=== PATIENT | female | born 1980 | race African-American/Black ===

== ENCOUNTER 2017-10-23 09:46 | Emergency (ER) | payer MEDICAID, OTHER ==
[~2017-10-23] VITALS: Ht 162.6 cm; Wt 79.0 kg
[2017-10-23 09:48] VITALS: BP 167/99; PULSE 70; RESP 16; TEMP 97.9; O2SAT 97
--- NOTE | 2017-10-23 10:33 | PD ---
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 This paresthesia or weakness of the extremity. She has full range of motion of the wrist and fingers. Pain is worse when the area is palpated and relieved with rest. Severity is mild. PFSH Past Medical History Medical History: Denies Significant Hx ?: Not LMP: 10/23/17 Social History Alcohol Use: No Tobacco Use: No Substance Use: No Allergies-Medications (Allergen,Severity, Reaction): Coded Allergies: No Known Allergies (Unverified , 10/23/17) Reported Meds & Prescriptions Reported Meds & Active Scripts Active No Active Prescriptions or Reported Medications Review of Systems Except as stated in HPI: all other systems reviewed are Neg Physical Exam Narrative GENERAL: Alert female who is well-appearing. SKIN: Warm and dry. HEAD: Normocephalic. EYES: No injection or drainage. NECK: Supple, trachea midline. MUSCULOSKELETAL: No cyanosis, or edema. Attention to the right upper extremity : Mild swelling and tenderness of the soft tissue in the distal medial aspect of the forearm. Patient has full range of motion of the wrist and fingers. 2+ radial pulse. Normal sensation distal to the injury. Refill. No bony tenderness of the wrist, radial bone, ulnar bone. Data Data Last Documented VS Vital Signs Date Time Temp Pulse Resp B/P (MAP) Pulse Ox O2 Delivery O2 Flow Rate FiO2 10/23/17 09:48 97.9 70 16 167/99 (121) 97 Room Air MDM Medical Decision Making Medical Screen Exam Complete: Yes Emergency Medical Condition: Yes Differential Diagnosis Contusion, wrist sprain, unlikely forearm fracture Narrative Course 37-year-old female with a contusion to the right forearm. Patient has no bony tenderness. She has full range of motion and normal sensation of the wrist and fingers. The extremity is neurovascularly intact. I do not believe this requires an x-ray as I do not suspect a fracture. Treatment of the contusion was discussed with patient. Rest, ice, elevate. Diagnosis Primary Impression: Contusion of right forearm Qualified Codes: S50.11XA - Contusion of right forearm, initial encounter Referrals: [facility] Additional Instructions: Rest, ice, elevate the extremity. Take [id number] Motrin or Tylenol as needed for pain. Avoid heavy lifting or strenuous activity which involves the right upper arm. Scripts No Active Prescriptions or Reported Meds Disposition: 01 DISCHARGE HOME Condition: Stable Drea Hernandez Oct 23, 2017 10:33
== END 2017-10-23 10:47 | disposition home or self-care (01) ==
LOC: NEPK 09:46
DX: S50.11XA Contusion of right forearm, initial encounter (principal); W22.8XXA Striking against or struck by other objects, initial encounter; Y93.F9 Activity, other caregiving; Y99.0 Civilian activity done for income or pay
CPT/HCPCS: 99282

== ENCOUNTER 2018-03-26 17:11 | Emergency (ER) | payer OTHER, MEDICAID ==
[~2018-03-26] VITALS: Ht 165.1 cm; Wt 80.0 kg
[2018-03-26 17:37] VITALS: BP 161/101; PULSE 80; RESP 17; TEMP 97.3; O2SAT 100
--- NOTE | 2018-03-26 18:32 | RADRPT ---
EXAM DATE: 03/26/2018 6:28 PM EDT AGE/SEX: 38 years / Female INDICATIONS: W/C hit knee on floor while bracing for fall. CLINICAL DATA: This is the patient's initial encounter. Patient reports that signs and symptoms have been present for 1 day and indicates a pain score of 2/10. MEDICAL/SURGICAL HISTORY: None. None. COMPARISON: No prior [facility] exams available for comparison. FINDINGS: Bony structures are intact and in normal alignment. Joints are intact without dislocation or significant arthropathy. Minimal spurring is seen at the anterior superior aspect of the patella. Osseous density is normal. Soft tissues are unremarkable. No radiopaque foreign bodies seen. CONCLUSION: No acute abnormalities seen. There is minimal spurring at the anterior superior aspect of the patella . Electronically signed by: Higinio Kelly MD 03/26/2018 6:30 PM EDT
--- NOTE | 2018-03-26 18:34 | PD ---
HPI Chief Complaint: Musculoskeletal Complaint Time Seen by Provider: 17:51 Travel History International Travel<30 days: No Contact w/Intl Traveler<30days: No Traveled to known affect area: No History of Present Illness HPI 38-year-old female presents the ED for evaluation of 2/10 right knee pain. Pain is minimal, exacerbated by touch. 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 Patient is a nurse on the floor here. She denies hitting her head or loss of consciousness in the fall. She has been ambulatory since the accident. She denies previous injury to the area, clicking, popping, giving way, numbness, tingling, weakness, limitations range of motion of the extremity. She treated with ice pack before arrival. [facility] Social History Alcohol Use: No Tobacco Use: No Substance Use: No Allergies-Medications (Allergen,Severity, Reaction): Coded Allergies: No Known Allergies (Unverified , 03/26/18) Reported Meds & Prescriptions Reported Meds & Active Scripts Active No Active Prescriptions or Reported Medications Review of Systems Except as stated in HPI: all other systems reviewed are Neg Physical Exam Narrative GENERAL: Well-nourished, well-developed pleasant -[place] female no acute distress. SKIN: Focused skin assessment warm/dry. HEAD: Normocephalic. EYES: No scleral icterus. No injection or drainage. NECK: Supple, trachea midline. No JVD or lymphadenopathy. CARDIOVASCULAR: Regular rate and rhythm without murmurs, gallops, or rubs. RESPIRATORY: Breath sounds equal bilaterally. No accessory muscle use. GASTROINTESTINAL: Abdomen soft, non-tender, nondistended. MUSCULOSKELETAL: No cyanosis, or edema. FOCUSED RIGHT LOWER EXTREMITY EXAM: 2+ DP pulse. Tender to palpation of the patella. No tenderness to palpation of the joint lines. Patient is able to flex beyond 90 and extend beyond 0. Negative varus/valgus stress testing. Patient is able to ambulate with a normal gait. Neurovascularly intact distally. BACK: Nontender without obvious deformity. No CVA tenderness. Data Data Last Documented VS Vital Signs Date Time Temp Pulse Resp B/P (MAP) Pulse Ox O2 Delivery O2 Flow Rate FiO2 03/26/18 17:37 97.3 80 17 161/101 (121) 100 Orders Orders Knee, Complete (4vws) (03/26/18 17:50) Ice/Cold Pack (03/26/18 17:50) Ed Discharge Order (03/26/18 18:34) [facility] Medical Decision Making Medical Screen Exam Complete: Yes Emergency Medical Condition: Yes Differential Diagnosis Fall versus contusion versus patellar fracture versus other Narrative Course 38-year-old female presents the ED for evaluation of 2/10 right knee pain. 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 Patient is a nurse on the floor here. Vitals reviewed. Claudia exam reveals point tenderness of the patella but is otherwise very reassuring. X-rays reveal no acute bony injury, incidental finding of small bone spur of the patella. I offered the patient anti- inflammatory medications which she declines at this time. She does request a spare ice pack for treatment at home. Patient's instructed to use RICE therapy , return to normal, gentle activity as tolerated, follow with the orthopedist. She indicated understanding the instructions. She is stable and discharged home. Diagnosis Primary Impression: Fall from standing Qualified Codes: W19.XXXA - Unspecified fall, initial encounter Additional Impression: Contusion of right knee, initial encounter Referrals: Orthopedist Additional Instructions: Rest, ice, elevate the extremity. Apply ice no longer than 10-15 minutes per hour a few times a day. 600 00 mg ibuprofen up to 3 times a day as needed for pain. Return to normal, gentle activity as tolerated. No running, jumping activities for the next few weeks. Follow up with orthopedist or your primary care provider. Return to the ED for any urgent or emergent medical condition. Scripts No Active Prescriptions or Reported Meds Disposition: 01 DISCHARGE HOME Condition: Stable Heydi Perez March 26, 2018 18:34
== END 2018-03-26 18:51 | disposition home or self-care (01) ==
LOC: NEPK 17:11
DX: S80.01XA Contusion of right knee, initial encounter (principal); W19.XXXA Unspecified fall, initial encounter; Y93.F9 Activity, other caregiving; Y92.239 Unspecified place in hospital as the place of occurrence of the external cause; Y99.0 Civilian activity done for income or pay
CPT/HCPCS: 73564; 99283